=== PATIENT | male | born 1990 | race Caucasian/White ===

== ENCOUNTER 2017-06-18 11:14 | Emergency (ER) | payer MEDICAID, OTHER ==
[~2017-06-18] VITALS: Ht 182.9 cm; Wt 70.3 kg
[2017-06-18 11:14] VITALS: BP 137/82
[2017-06-18] MEDS ORDERED: IBUPROFEN 600 MG TABLET PO ONE ×2 (12:11→12:30)
== END 2017-06-18 12:40 | disposition home or self-care (01) ==
LOC: ER 11:22
DX: J03.90 Acute tonsillitis, unspecified (principal); J40 Bronchitis, not specified as acute or chronic; G40.909 Epilepsy, unspecified, not intractable, without status epilepticus
CPT/HCPCS: 71045; 99283; A4606; Z7610